=== PATIENT | female | born 1985 | race Caucasian/White ===

== ENCOUNTER 2016-09-12 18:00 | Emergency (ER) | payer OTHER ==
[~2016-09-12] VITALS: Ht 165.1 cm; Wt 83.0 kg
[2016-09-12 18:06] VITALS: Ht 165.1 cm; Wt 83.0 kg
[2016-09-12] MEDS ORDERED: ONDANSETRON (ODT) 4 MG TAB ODT STA (18:38)
[2016-09-12] MEDS ORDERED: ACETAMINOPHEN 500 MG TAB PO STA (18:38)
[2016-09-12] MEDS ORDERED: SOD CHLORIDE 0.9% 500 ML IV STA (18:50)
[2016-09-12] MEDS ORDERED: METOCLOPRAMIDE 10 MG INJ IV ONE (19:00)
[2016-09-12 19:59] LABS: ADD SCAN DIFF NO
[2016-09-12 20:02] LABS: BASOPHILS % 0.1 % (0.0-2.0); EOSINOPHILS % 0.5 % (0.0-7.0); HEMATOCRIT 29.6 % (37.0-47.0); HEMOGLOBIN 9.6 g/dl (12.0-16.0); LYMPHOCYTES # 1.9 10^3/ul (0.8-2.9); LYMPHOCYTES % 26.3 % (15.0-51.0); MEAN CORPUSCULAR HEMOGLOBIN 28.7 pg (29.0-33.0); MEAN CORPUSCULAR HGB CONC 32.4 g/dl (32.0-37.0); MEAN CORPUSCULAR VOLUME 88.4 fl (82.0-101.0); MEAN PLATELET VOLUME 10.2 fl (7.4-10.4); MONOCYTE # 0.5 10^3/ul (0.3-0.9); NEUTROPHIL # 4.8 10^3/ul (1.6-7.5); NEUTROPHILS % 65.3 % (39.0-77.0); PLATELET COUNT 276 10^3/UL (140-415); RED BLOOD COUNT 3.35 10^6/ul (4.20-5.40); RED CELL DISTRIBUTION WIDTH 15.9 % (11.5-14.5); WHITE BLOOD COUNT 7.4 10^3/ul (4.8-10.8)
[2016-09-12 20:06] LABS: ADD UMIC NO; UR ASCORBIC ACID NEGATIVE (NEGATIVE); UR BACTERIA FEW /HPF (NONE SEEN); UR BILIRUBIN (Dip) NEGATIVE (NEGATIVE); UR BLOOD (Dip) NEGATIVE (NEGATIVE); UR CLARITY SLIGHTLY CLOUDY (CLEAR); UR COLOR YELLOW (YELLOW); UR GLUCOSE (Dip) NEGATIVE (NEGATIVE); UR KETONES (Dip) TRACE mg/dL (NEGATIVE); UR LEUKOCYTE ESTERASE (Dip) NEGATIVE Leu/ul (NEGATIVE); UR NITRITE (Dip) NEGATIVE (NEGATIVE); UR RBC 1 /HPF (0-5); UR SPECIFIC GRAVITY (Dip) 1.015 (1.003-1.030); UR SQUAMOUS EPITHELIAL CELL FEW /HPF (FEW); UR TOTAL PROTEIN (Dip) NEGATIVE (NEGATIVE); UR UROBILINOGEN (Dip) NEGATIVE (NEGATIVE)
[2016-09-12 20:24] LABS: ALBUMIN 4.1 g/dl (3.3-4.9); ALBUMIN/GLOBULIN RATIO 1.41; CALCIUM 9.4 mg/dl (8.4-10.2); CREATININE 0.55 mg/dl (0.44-1.00); POTASSIUM 3.4 mmol/L (3.5-5.1)
--- NOTE | 2016-09-12 21:23 | RADRPT ---
PROCEDURE: US OB. CLINICAL INDICATION: Twin gestation. Pelvic pain. TECHNIQUE: Multiple sonographic images of the uterus were obtained. The images were revi ewed on a PACS workstation. COMPARISON: No prior studies are available for comparison. FINDINGS: There is a live twin gestation. Twin gestation A: heart rate is 166 beats per minute. Measurements were made in order to determine age. The results are as follows: BPD = 3.18 cm. HC = 11.53 cm. AC = 10.43 cm. FL = 1.97 cm. Estimated weight is 144 +/- 22 grams. LMP growth percentile is 29 %. Menstrual age by ultrasound dates is 16 weeks 0 days. The estimated date of delivery is 02/27/2017. Position is cephalic and placenta is shared anterior grade 1. There is no evidence for an abruption or placenta previa. Maximum vertical pocket of amniotic fluid is 4.2 cm. Twin gestation B: heart rate is 150 beats per minute. Measurements were made in order to determine age. The results are as follows: BPD = 3.33 cm. HC = 11.83 cm. AC = 10.61 cm. FL = 1.95 cm. Estimated weight is 146 +/- 22 grams. LMP growth percentile is 33 %. Menstrual age by ultrasound dates is 16 weeks 1 day. The estimated date of delivery is 02/26/2017. Position is cephalic and placenta is shared anterior grade 1. There is no evidence for an abruption or placenta previa. Maximum vertical pocket of amniotic fluid is 3.3 cm. IMPRESSION: 1. Twin gestation as described above. RPTAT: QQ .José Manuel Simms MD, Date Time Electronically viewed and signed by .José Manuel Simms MD, MD on 09/12/2016 21:22 .R/
--- NOTE | 2016-09-12 21:56 | ERD ---
ER Documentation Chief Complaint Date/Time DATE: 09/12/16 TIME: 21:54 Chief Complaint bilat leg pain and swelling since last night; 4mnths HPI This is a 31-year-old female who is approximately 4 months complaining of bilateral lower extremity swelling for 2 days. Denies any trauma. She is ambulatory but has pain with ambulation. Admits to nausea but no vomiting. No chest pain or shortness of breath. No fever. No recent travel. No dysuria hematuria or increased urinary frequency. No vaginal bleeding. ROS All systems reviewed and are negative except as per history of present illness. PMhx/Soc Medical and Surgical Hx: pt denies Medical Hx History of Surgery: Yes (bowel obstruction repair) Hx Alcohol Use: No Hx Substance Use: No Hx Tobacco Use: Yes (inc. stress smoking last two days) Smoking Status: Current every day smoker FmHx Family History: No diabetes Physical Exam Vitals Vital Signs Date Time Temp Pulse Resp B/P Pulse Ox O2 Delivery O2 Flow Rate FiO2 09/12/16 18:06 100.0 108 18 131/76 98 Physical Exam General: well developed, well nourished, alert, nontoxic, no distress Head: normocephalic, atraumatic Eyes: PERRL, normal conjunctiva Neck: Supple, nontender, no lymphadenopathy, no midline tenderness Respiratory: Clear to auscaultation bilaterally, speaks in full sentences, no use of accesory muscles or labored breathing, no rales, ronchi, or wheezing Cardiovascular: RRR, No murmurs GI: soft, non tender, non distended, negative murphys sign, negative mcburneys point tenderness, no cva tenderness bilaterally, no rebound or guarding Back: no midline tenderness, no step offs or bony abnormalities, sensation to light touch in tact Extremities: moving all extremities normally, normal gait, 2+ bilateral edema, no erythema, no tenderness redness or swelling behind the posterior bilateral calf Result Diagram: 09/12/16184409/12/16 184 Results 24 hrs Laboratory Tests Test 09/12/16 18:45 White Blood Count 7.410^3/ul Red Blood Count 3.3510^6/ul Hemoglobin 9.6g/dl Hematocrit 29.6% Mean Corpuscular Volume 88.4fl Mean Corpuscular Hemoglobin 28.7pg Mean Corpuscular Hemoglobin Concent 32.4g/dl Red Cell Distribution Width 15.9% Platelet Count 01507^3/UL Mean Platelet Volume 10.2fl Neutrophils % 65.3% Lymphocytes % 26.3% Monocytes % 7.0% Eosinophils % 0.5% Basophils % 0.1% Nucleated Red Blood Cells % 0.0/100WBC Neutrophils # 4.810^3/ul Lymphocytes # 1.910^3/ul Monocytes # 0.510^3/ul Eosinophils # 0.010^3/ul Basophils # 0.010^3/ul Nucleated Red Blood Cells # 0.010^3/ul Urine Color YELLOW Urine Clarity SLIGHTLY CLOUDY Urine pH 6.0 Urine Specific [place] 1.015 Urine Ketones TRACEmg/dL Urine Nitrite NEGATIVEmg/dL Urine Bilirubin NEGATIVEmg/dL Urine Urobilinogen NEGATIVEmg/dL Urine Leukocyte Esterase NEGATIVELeu/ul Urine Microscopic RBC 1/HPF Urine Microscopic WBC 1/HPF Urine Squamous Epithelial Cells FEW/HPF Urine Bacteria FEW/HPF Urine Hemoglobin NEGATIVEmg/dL Urine Glucose NEGATIVEmg/dL Urine Total Protein NEGATIVEmg/dl Sodium Level 134mmol/L Potassium Level 3.4mmol/L Chloride Level 104mmol/L Carbon Dioxide Level 24mmol/L Anion Gap 9 Blood Urea Nitrogen 8mg/dl Creatinine 0.55mg/dl Glucose Level 94mg/dl Calcium Level 9.4mg/dl Total Bilirubin 0.0mg/dl Direct Bilirubin 0.00mg/dl Indirect Bilirubin 0.0mg/dl Aspartate Amino Transf (AST/SGOT) 31IU/L Alanine Aminotransferase (ALT/SGPT) 34IU/L Alkaline Phosphatase 73IU/L Total Protein 7.0g/dl Albumin 4.1g/dl Globulin 2.90g/dl Albumin/Globulin Ratio 1.41 Current Medications Medications (Trade) Dose Ordered Sig/Noni Route PRN Reason Start Time Stop Time Status Last Admin Dose Admin Acetaminophen (Tylenol Tab) 1,000 mg ONCE STAT PO 09/12/16 18:38 09/12/16 18:40 DC 09/12/16 18:56 Ondansetron HCl 4 mg 4 mg ONCE STAT ODT 09/12/16 18:38 09/12/16 18:39 Cancel Sodium Chloride (NS) 500 ml @ 500 mls/hr Q1H STAT IV 09/12/16 18:50 09/12/16 19:49 DC 09/12/16 18:57 Metoclopramide HCl (Reglan) 10 mg ONCE ONCE IV 09/12/16 19:00 09/12/16 19:01 DC 09/12/16 18:56 Procedures/MDM Patient has bilateral lower extremity edema during . She has a temperature of 100 and a pulse of 108. Her examination is not concerning for DVT at this time. She has no vaginal bleeding. She has a known twin gestational . I reviewed the case with Dr. Rooney who recommended CBC chemistry panel and urine. Tests were unremarkable. No evidence of help syndrome or eclampsia/preeclampsia. Ultrasound of the showed twin gestational . Patient was given copies of all of the labs and ultrasound reports she can follow with primary care. Recommended this patient follow up with her primary care doctor within 48 hours or return to the emergency room for any worsening of symptoms. However this time I do believe there is suitable for outpatient management. I answered all their questions and they agreed with the plan and were discharged home. Departure Diagnosis: Primary Impression: Edema during Condition: Stable Patient Instructions: : Body Changes Additional Instructions: Call your primary care doctor TOMORROW for an appointment during the next 1-2 days.See the doctor sooner or return here if your condition worsens before your appointment time. NAEEM GOMEZ PA-C Sep 12, 2016 21:56
[2016-09-12 22:05] VITALS: BP 129/77; PULSE 94; RESP 18; TEMP 99.2
== END 2016-09-12 22:06 | disposition home or self-care (01) ==
LOC: FTE 18:00
DX: O12.02 Gestational edema, second trimester (principal); O99.332 Smoking (tobacco) complicating pregnancy, second trimester; F17.210 Nicotine dependence, cigarettes, uncomplicated; Z3A.16 16 weeks gestation of pregnancy
CPT/HCPCS: 36415; 76805; 80053; 81001; 81003; 85025; 96374; 99285; J2765; J7040